=== PATIENT | female | born 1935 | race Caucasian/White ===

== ENCOUNTER 2016-12-11 10:54 | Emergency (ER) | payer MEDICARE, BC ==
[~2016-12-11] VITALS: Ht 160 cm; Wt 56.8 kg
[~2016-12-11 10:54] MED LIST: ADVIL100 MG/5 M PO; AMITIZA24 MCG PO; AMOXICILLI125 MG/51; AMOXICILLI400 MG/51 PO; AMOXICILLIN 8751 TAB PO; ANTIBIOTIC; ASPIRIN 81M81 MG/TA2 PEG; BENEFIBER1 POW PO; CEPHALEXIN250 MG/5 M PO; COLACE 100100 MG/CAP PO; COLACE LIQUI10 MG/ML PEG; COLACE LIQUI10 MG/ML PO; DIFLUCAN 100MG100 MG PO; DOXYCYCLINE 10100 MG PO; FENTANYL 50MCG TD; FLAGYL500 MG PEG; FLOXIN OTIC DROP5 ML; GENTAMICIN180 MG/502 NS; LEVAQUIN 750MG750 M1 PEG; MAGIC MOUTHWASH1 M2 PO; MERREM IV1 GM IV; MILK OF MA400 MG/52; OXYCODONE H5 MG/5 ML PEG; OXYCODONE H5 MG/5 ML PO; PERCOCET 325 MG1 TA2 PO; PERIDEX (CHLOR480 ML; PHENERGAN 25 TA25 MG PO; TYLENOL ELIX32 MG/ML PO; TYLENOL W/COD1 UDTAB PO; ZANTAC 150MG15 MG/M1 PEG
[2016-12-11 10:56] VITALS: BP 152/82; PULSE 70; TEMP 97.6
[2016-12-11] MEDS ORDERED: TYLENOL/CODEINE1 ML PO (11:01)
== END 2016-12-11 11:45 | disposition home or self-care (01) ==
LOC: COL.ER 10:54
DX: K94.23 Gastrostomy malfunction (principal)

== ENCOUNTER 2017-01-16 11:12 | Emergency (ER) | payer MEDICARE, BC ==
[~2017-01-16] VITALS: Ht 160 cm; Wt 56.8 kg
[~2017-01-16 11:12] MED LIST changes: +TYLENOL/CODEINE1 ML PO
[2017-01-16 11:15] VITALS: TEMP 98.3
[2017-01-16] MEDS ORDERED: BROVANA15 MCG/2 M IH (11:18)
[2017-01-16] MEDS ORDERED: ATROVENT I0.2 MG/1 M IH (11:18)
[2017-01-16 12:11] LABS: BASO % 0.2 % (0.0-2.0); EOS # 0.1 (0.0-0.7); EOS % 0.8 % (0-4.0); GRAN # 11.4 (1.4-6.5); GRAN % 85.6 % (42.2-75.2); HEMATOCRIT 41.1 % (37.0-47.0); HEMOGLOBIN 13.4 g/dl (12.5-16.0); LYMPH # 0.7 (1.2-3.4); LYMPH % 4.9 % (20.0-51.0); MEAN CELL VOLUME 96 fl (80.0-100.0); MEAN CORPUSCULAR HEMOGLOBIN 31 pg (27.0-31.0); MEAN CORPUSCULAR HGB CONC 33 g/dl (33.0-37.0); MEAN PLATELET VOLUME 11.8 fl (7.4-10.4); MONO # 1.1 (0.1-0.6); MONO % 8.2 % (1.7-9.3); PLATELET COUNT 167 K/mm3 (130-400); RED BLOOD COUNT 4.27 M/mm3 (4.10-5.30); REDCELL DISTRIBUTION WIDTH-CV 14.3 % (11.5-14.5); WHITE BLOOD COUNT 13.4 K/mm3 (4.8-10.8)
[2017-01-16 12:31] LABS: ADJUSTED CALCIUM 8.9 mg/dL (8.4-10.2); ALBUMIN 4.2 gm/dL (3.5-5.0); BILIRUBIN,TOTAL 1.4 mg/dL (0.0-1.0); CALCIUM 9.1 mg/dL (8.4-10.2); CREATININE, serum 0.65 mg/dL (0.52-1.25); POTASSIUM 4.4 mmol/L (3.4-5.0); TOTAL PROTEIN 7.4 gm/dL (6.4-8.2)
[2017-01-16] MEDS ORDERED: PEN-VEE K500 MG PO (13:47)
[2017-01-16 14:03] VITALS: BP 110/52; PULSE 95
== END 2017-01-16 14:04 | disposition home or self-care (01) ==
LOC: COL.ER 11:12
PROVIDERS: Physician Assistant
DX: K04.7 Periapical abscess without sinus (principal); Z79.891 Long term (current) use of opiate analgesic; Z85.830 Personal history of malignant neoplasm of bone
CPT/HCPCS: Q9967

== ENCOUNTER 2017-10-07 09:38 | Emergency (ER) | payer MEDICARE, BC ==
[~2017-10-07] VITALS: Ht 160 cm; Wt 56.8 kg
[~2017-10-07 09:38] MED LIST changes: +ATROVENT I0.2 MG/1 M IH; +BROVANA15 MCG/2 M IH; +PEN-VEE K500 MG PO
[2017-10-07 09:42] VITALS: BP 128/60; PULSE 77; TEMP 96.7
[2017-10-07] MEDS ORDERED: TIROSINT25 MC1 PO (09:49)
== END 2017-10-07 10:20 | disposition home or self-care (01) ==
LOC: COL.ER 09:38
DX: K94.29 Other complications of gastrostomy (principal); Z85.819 Personal history of malignant neoplasm of unspecified site of lip, oral cavity, and pharynx; Z87.891 Personal history of nicotine dependence

== ENCOUNTER → 2018-01-10 | Outpatient (CLI) | payer MEDICARE, BC ==
[~2018-01-10] MED LIST changes: +TIROSINT25 MC1 PO
== END ==
LOC: COL.VAS 09:58
DX: R42 Dizziness and giddiness (principal); Z92.3 Personal history of irradiation

== ENCOUNTER 2018-05-19 12:17 | Emergency (ER) | payer MEDICARE, BC ==
[~2018-05-19] VITALS: Ht 160 cm; Wt 56.8 kg
[2018-05-19 12:27] VITALS: BP 143/62
[2018-05-19] MEDS ORDERED: SSKI1 GM/ML PO (12:46)
[2018-05-19 13:18] VITALS: PULSE 62
== END 2018-05-19 13:19 | disposition home or self-care (01) ==
LOC: COL.ER 12:17
DX: K94.23 Gastrostomy malfunction (principal); Z43.1 Encounter for attention to gastrostomy

== ENCOUNTER 2018-12-06 18:17 | Emergency (ER) | payer MEDICARE, BC ==
[~2018-12-06] VITALS: Ht 160 cm; Wt 54.5 kg
[~2018-12-06 18:17] MED LIST changes: +SSKI1 GM/ML PO
[2018-12-06 18:18] VITALS: BP 187/95; TEMP 98.1
[2018-12-06 18:59] VITALS: PULSE 75
== END 2018-12-06 19:03 | disposition home or self-care (01) ==
LOC: COL.ER 18:17
DX: K94.23 Gastrostomy malfunction (principal)

== ENCOUNTER 2018-12-27 23:46 | Observation (INO) | payer MEDICARE, BC ==
[~2018-12-27] VITALS: Ht 160 cm; Wt 53.8 kg
[2018-12-28 00:17] LABS: BASO % 0.2 % (0.0-2.0); EOS % 0.1 % (0-4.0); GRAN # 9.7 (1.4-6.5); GRAN % 82.5 % (42.2-75.2); HEMATOCRIT 47.6 % (37.0-47.0); HEMOGLOBIN 15.7 g/dl (12.5-16.0); LYMPH # 1.2 (1.2-3.4); LYMPH % 9.9 % (20.0-51.0); MEAN CELL VOLUME 94 fl (80.0-100.0); MEAN CORPUSCULAR HEMOGLOBIN 31 pg (27.0-31.0); MEAN CORPUSCULAR HGB CONC 33 g/dl (33.0-37.0); MEAN PLATELET VOLUME 12.4 fl (7.4-10.4); MONO # 0.8 (0.1-0.6); MONO % 6.4 % (1.7-9.3); PLATELET COUNT 183 K/mm3 (130-400); RED BLOOD COUNT 5.08 M/mm3 (4.10-5.30)
[2018-12-28 00:22] LABS: ALANINE AMINOTRANSFERASE 27 U/L (9-52); ALBUMIN 4.7 gm/dL (3.5-5.0); ALKALINE PHOSPHATASE 84 U/L (50-136); ANION GAP 12 mmol/L (7-16); AST,SGOT 56 U/L (15-37); BILIRUBIN,TOTAL 0.9 mg/dL (0.0-1.0); BLOOD UREA NITROGEN 29 mg/dL (7-17); CALCIUM 9.9 mg/dL (8.4-10.2); CARBON DIOXIDE 30 mmol/L (22-30); CHLORIDE 99 mmol/L (98-107); CREATININE, serum 0.68 (0.52-1.25); GLUCOSE 109 mg/dL (74-106); LIPASE 128 U/L (23-300); POTASSIUM 4.3 mmol/L (3.4-5.0); SODIUM 140 mmol/L (137-145); TOTAL PROTEIN 8.4 gm/dL (6.4-8.2)
[2018-12-28 00:23] LABS: C-REACTIVE PROTEIN < 0.5 mg/dL (0.0-0.9); CREATINE KINASE < 20 U/L (30-135)
[2018-12-28 00:31] LABS: TROPONIN-I < 0.012 ng/mL (0.000-0.035)
--- NOTE | 2018-12-28 03:13 | NUR ---
RODDY Conrad from the ED calls at this time to give report. Patient will be brought up via bed. Daughter Romy at bedside
--- NOTE | 2018-12-28 03:26 | NUR ---
Patient arrives at this time with all belongings and daughter at bedside. Patient ambulates to unit bed. Requests to use the restroom, she uses independently. Oriented patient and family to room and unit. Assessment complete. Assessment reveals clear lung sounds with diminished bases, audible bowel sounds x4, and HR and rhythm regular with normal S1 and S2 heard. Patient has no complaints of pain at this time, says the medication she was given in the ED really helped. Patient is alert and oriented and able to answer all questions about her history. Med list updated. Patient does slur her words due to multiple oral surgeries and missing parts of her jaw. Admission assessments complete. Patient has no further needs at this time. Will continue to monitor. Call light within reach.
[2018-12-28] MEDS ORDERED: LEVOXYL0.075 MG PO (03:37)
[2018-12-28 03:39] VITALS: BP 131/70; PULSE 74; TEMP 97.9
--- NOTE | 2018-12-28 07:03 | NUR ---
Bedside report given to Bernadette
[2018-12-28 08:59] VITALS: BP 144/58; PULSE 68; TEMP 97.4
--- NOTE | 2018-12-28 09:12 | NUR ---
TOBI met with the patient and patient's daughter, Romy, to discuss discharge plan. The patient lives alone in [place]. Her daughter states she lives nearby. The patient reports independence with ADLs and does not use any DME. She states she does not have any home health services. The patient's PCP is Dr. Daisy Morelos and she receives her medications from [facility]. She reports no difficulties obtaining her meds. The patient does not have advanced directives in EMR, but she states that she does have them completed. The patient plans to return home upon discharge. No additional needs at this time.
[2018-12-28 11:36] VITALS: BP 139/56; PULSE 67; TEMP 97.8
--- NOTE | 2018-12-28 12:27 | NUR ---
First visit from the computer bookkeeper. No needs right now.
[2018-12-28] MEDS ORDERED: ARNUITY IH (14:20)
[2018-12-28 15:39] VITALS: BP 131/54; PULSE 67; TEMP 97.5
--- NOTE | 2018-12-28 18:00 | NUR ---
Patient has been diong well most of the day. She had pain once in her mouth and was rating her pain at 9 on a 0-10 scale. Morphine given for pain. Denies nausea. Will be getting her fentnyl patch changed this evening. She is hoping to discharge tomrrow. No other changes at this time. Call light within reach.
[2018-12-28 19:29] VITALS: BP 121/65; PULSE 65; TEMP 97.5
--- NOTE | 2018-12-28 19:30 | NUR ---
Per Dr. Lin, infuse tube feeding per what patient normally takes, at whatever rate patient usually does. Dietary to see patient in AM.
--- NOTE | 2018-12-28 20:22 | NUR ---
Resting in bed with daughter. Tubing feeding given per verbal orders from Dr. Lin. Assessment complete. Lungs clear. Heart sounds normal. Bowels active x4. Peg tube in place. Pulses strong throughout. No edema noted. Reports 2/10 pain in jaw. Duragesic patch applied. Wasted old patch per protocol, Bernadette Wolfe RN as witness. Patient denies other needs at this time. Call light in reach. Will monitor.
--- NOTE | 2018-12-28 20:32 | NUR ---
Infused isosource 1.5, 375ml with 360ml of free water per verbal order from Dr. Lin. Order to infuse what patient noramlly infuses at home at whatever rate patient does. Patient tolerated well. Will monitor.
[2018-12-28 23:43] VITALS: BP 97/68; PULSE 68; TEMP 97.2
--- NOTE | 2018-12-29 00:37 | NUR ---
Resting in bed. Denies needs. Call light in reach.
[2018-12-29 00:40] VITALS: BP 117/60
[2018-12-29 03:36] VITALS: BP 128/64; PULSE 64; TEMP 97.8
[2018-12-29 06:26] LABS: HEMATOCRIT 41.4 % (37.0-47.0); MEAN CELL VOLUME 94 fl (80.0-100.0); MEAN CORPUSCULAR HEMOGLOBIN 31 pg (27.0-31.0); MEAN CORPUSCULAR HGB CONC 33 g/dl (33.0-37.0); MEAN PLATELET VOLUME 11.9 fl (7.4-10.4); PLATELET COUNT 190 K/mm3 (130-400); RED BLOOD COUNT 4.39 M/mm3 (4.10-5.30); REDCELL DISTRIBUTION WIDTH-CV 14.3 % (11.5-14.5)
[2018-12-29 06:29] LABS: HEMOGLOBIN 13.5 g/dl (12.5-16.0)
--- NOTE | 2018-12-29 06:32 | NUR ---
Patient had uneventful night. Tolerated x1 tube feeding. Will pass on to next shift to INT IVF per additional nurse if tolerating tube feedings. Resting in bed this AM. Call light in reach.
[2018-12-29 06:39] LABS: ALBUMIN 3.6 gm/dL (3.5-5.0); BILIRUBIN,TOTAL 0.7 mg/dL (0.0-1.0); CREATININE, serum 0.56 (0.52-1.25); POTASSIUM 4.7 mmol/L (3.4-5.0); TOTAL PROTEIN 6.6 gm/dL (6.4-8.2)
--- NOTE | 2018-12-29 07:22 | NUR ---
Report given to RODDY Fleming
[2018-12-29 08:00] VITALS: BP 114/36; PULSE 73; TEMP 98
--- NOTE | 2018-12-29 11:30 | NUR ---
Patient is discharging home. Discharge instructions discussed with patient. No questions verbalized. INT discontinued. Follow up appointment scheduled, explained when it is. All belongings packed up and sent with patient. Copies of discharge instructions sent with patient.
== END 2018-12-29 11:30 | disposition home or self-care (01) ==
LOC: COL.ER 23:46 → SURG 12-28 02:55
PROVIDERS: Emergency Medicine; ADMIT Surgery
DX: R10.13 Epigastric pain (principal); Z85.810 Personal history of malignant neoplasm of tongue; Z93.1 Gastrostomy status; E03.9 Hypothyroidism, unspecified; J44.9 Chronic obstructive pulmonary disease, unspecified; Z88.1 Allergy status to other antibiotic agents; Z88.2 Allergy status to sulfonamides; Z88.8 Allergy status to other drugs, medicaments and biological substances
CPT/HCPCS: A4216; G0378; J0696; J2270; J3010; J7030; Q9967

== ENCOUNTER 2019-02-02 16:21 | Emergency (ER) | payer MEDICARE, BC ==
[~2019-02-02] VITALS: Ht 157.5 cm; Wt 55.0 kg
[~2019-02-02 16:21] MED LIST changes: +ARNUITY IH; +LEVOXYL0.075 MG PO
[2019-02-02 16:32] VITALS: TEMP 98.2
[2019-02-02] MEDS ORDERED: COLACE 100100 MG/CAP PO (18:12)
[2019-02-02] MEDS ORDERED: DULCOLAX S10 MG/SUPP RC (18:46)
[2019-02-02 18:53] VITALS: BP 164/81; PULSE 83
== END 2019-02-02 18:55 | disposition home or self-care (01) ==
LOC: COL.ER 16:21
DX: K56.41 Fecal impaction (principal); K62.89 Other specified diseases of anus and rectum

== ENCOUNTER 2019-06-27 18:16 | Emergency (ER) | payer MEDICARE, BC ==
[~2019-06-27] VITALS: Ht 177.8 cm; Wt 56.8 kg
[~2019-06-27 18:16] MED LIST changes: +DULCOLAX S10 MG/SUPP RC
[2019-06-27 18:20] VITALS: BP 153/75; TEMP 97.3
[2019-06-27 18:51] LABS: BASO % 0.4 % (0.0-2.0); EOS # 0.2 (0.0-0.7); GRAN # 5.2 (1.4-6.5); GRAN % 68.6 % (42.2-75.2); HEMATOCRIT 43.3 % (37.0-47.0); HEMOGLOBIN 14.1 g/dl (12.5-16.0); LYMPH # 1.4 (1.2-3.4); LYMPH % 18.5 % (20.0-51.0); MEAN CELL VOLUME 95 fl (80.0-100.0); MEAN CORPUSCULAR HEMOGLOBIN 31 pg (27.0-31.0); MEAN CORPUSCULAR HGB CONC 33 g/dl (33.0-37.0); MEAN PLATELET VOLUME 11.9 fl (7.4-10.4); MONO # 0.7 (0.1-0.6); MONO % 9.2 % (1.7-9.3); PLATELET COUNT 186 K/mm3 (130-400); RED BLOOD COUNT 4.56 M/mm3 (4.10-5.30); REDCELL DISTRIBUTION WIDTH-CV 14.1 % (11.5-14.5)
[2019-06-27 19:04] LABS: ALBUMIN 4.5 gm/dL (3.5-5.0); BILIRUBIN,TOTAL 0.5 mg/dL (0.0-1.0); C-REACTIVE PROTEIN 0.9 mg/dL (0.0-0.9); CALCIUM 9.5 mg/dL (8.4-10.2); CREATININE, serum 0.71 (0.52-1.25); POTASSIUM 4.3 mmol/L (3.4-5.0); TOTAL PROTEIN 7.9 gm/dL (6.4-8.2)
[2019-06-27 20:16] VITALS: PULSE 64
== END 2019-06-27 20:16 | disposition home or self-care (01) ==
LOC: COL.ER 18:16
PROVIDERS: Family Medicine
DX: K94.23 Gastrostomy malfunction (principal); Z85.818 Personal history of malignant neoplasm of other sites of lip, oral cavity, and pharynx
CPT/HCPCS: Q9967

== ENCOUNTER 2019-12-13 12:15 | Emergency (ER) | payer MEDICARE, BC ==
[~2019-12-13] VITALS: Ht 177.8 cm; Wt 54.5 kg
[2019-12-13 12:18] VITALS: BP 179/75; TEMP 99.1
[2019-12-13 13:18] LABS: BASO % 0.2 % (0.0-2.0); EOS # 0.2 (0.0-0.7); GRAN # 6.9 (1.4-6.5); GRAN % 79.8 % (42.2-75.2); HEMATOCRIT 39.6 % (37.0-47.0); HEMOGLOBIN 12.9 g/dl (12.5-16.0); LYMPH # 0.9 (1.2-3.4); MEAN CELL VOLUME 95 fl (80.0-100.0); MEAN CORPUSCULAR HEMOGLOBIN 31 pg (27.0-31.0); MEAN CORPUSCULAR HGB CONC 33 g/dl (33.0-37.0); MEAN PLATELET VOLUME 11.8 fl (7.4-10.4); MONO # 0.7 (0.1-0.6); MONO % 7.8 % (1.7-9.3); PLATELET COUNT 214 K/mm3 (130-400); RED BLOOD COUNT 4.16 M/mm3 (4.10-5.30); REDCELL DISTRIBUTION WIDTH-CV 14.1 % (11.5-14.5)
[2019-12-13 13:26] LABS: ALBUMIN 3.9 gm/dL (3.5-5.0); BILIRUBIN,TOTAL 0.6 mg/dL (0.0-1.0); CALCIUM 9.2 mg/dL (8.4-10.2); CREATININE, serum 0.68 (0.52-1.25); POTASSIUM 4.7 mmol/L (3.4-5.0); TOTAL PROTEIN 7.2 gm/dL (6.4-8.2)
[2019-12-13] MEDS ORDERED: CEPHALEXIN250 MG/5 M PEG (15:27)
[2019-12-13 15:40] VITALS: PULSE 72
== END 2019-12-13 15:59 | disposition home or self-care (01) ==
LOC: COL.ER 12:15
PROVIDERS: Emergency Medicine
DX: K94.22 Gastrostomy infection (principal)
CPT/HCPCS: Q9967

== ENCOUNTER 2019-12-21 17:27 | Emergency (ER) | payer MEDICARE, BC ==
[~2019-12-21] VITALS: Ht 157.5 cm; Wt 56.8 kg
[~2019-12-21 17:27] MED LIST changes: +CEPHALEXIN250 MG/5 M PEG
[2019-12-21 17:35] VITALS: TEMP 97.6
[2019-12-21 18:14] VITALS: BP 139/68; PULSE 70
== END 2019-12-21 18:14 | disposition home or self-care (01) ==
LOC: COL.ER 17:27
DX: K94.21 Gastrostomy hemorrhage (principal); E03.9 Hypothyroidism, unspecified

== ENCOUNTER 2020-08-20 16:57 | Emergency (ER) | payer MEDICARE, BC ==
[~2020-08-20] VITALS: Ht 157.5 cm; Wt 57.7 kg
[2020-08-20 17:09] VITALS: BP 154/79; TEMP 97.8
[2020-08-20] MEDS ORDERED: LEVAQUIN 5500 MG/TA1 PO (17:32)
[2020-08-20] MEDS ORDERED: TYLENOL W/COD1 UDTAB PO (17:33)
[2020-08-20] MEDS ORDERED: BENADRYL25 M2 PO (17:33)
[2020-08-20 18:12] VITALS: PULSE 72
== END 2020-08-20 18:08 | disposition home or self-care (01) ==
LOC: COL.ER 16:57
DX: K94.23 Gastrostomy malfunction (principal); Z88.8 Allergy status to other drugs, medicaments and biological substances; Z88.2 Allergy status to sulfonamides; Z87.891 Personal history of nicotine dependence

== ENCOUNTER 2020-11-07 07:43 | Emergency (ER) | payer MEDICARE, BC ==
[~2020-11-07] VITALS: Ht 160 cm; Wt 57.7 kg
[~2020-11-07 07:43] MED LIST changes: +BENADRYL25 M2 PO; +LEVAQUIN 5500 MG/TA1 PO
[2020-11-07 07:56] VITALS: TEMP 97.3
[2020-11-07] MEDS ORDERED: FENTANYL 25 MCG TD (08:20)
[2020-11-07] MEDS ORDERED: ATROVENT I0.2 MG/1 M IH (08:21)
[2020-11-07 08:26] VITALS: BP 126/89; PULSE 81
[2021-03-17] MEDS ORDERED: TYLENOL/CODEINE1 ML PO (05:23)
[2021-03-17] MEDS ORDERED: AUGMENTIN 400100 ML PO (05:25)
== END 2020-11-07 08:30 | disposition home or self-care (01) ==
LOC: COL.ER 07:43
DX: K94.29 Other complications of gastrostomy (principal); E03.9 Hypothyroidism, unspecified; Z88.2 Allergy status to sulfonamides; Z79.890 Hormone replacement therapy; Z88.8 Allergy status to other drugs, medicaments and biological substances

== ENCOUNTER 2020-11-08 06:12 | Emergency (ER) | payer MEDICARE, BC ==
[~2020-11-08] VITALS: Ht 167.6 cm; Wt 65.9 kg
[~2020-11-08 06:12] MED LIST changes: +FENTANYL 25 MCG TD
[2020-11-08 06:17] VITALS: BP 150/81; PULSE 89; TEMP 97.4
[2021-03-17] MEDS ORDERED: TYLENOL/CODEINE1 ML PO (05:23)
[2021-03-17] MEDS ORDERED: AUGMENTIN 400100 ML PO (05:25)
== END 2020-11-08 06:50 | disposition home or self-care (01) ==
LOC: COL.ER 06:12
DX: K94.23 Gastrostomy malfunction (principal); E03.9 Hypothyroidism, unspecified; Z88.8 Allergy status to other drugs, medicaments and biological substances; Z88.2 Allergy status to sulfonamides; Z79.890 Hormone replacement therapy

== ENCOUNTER 2021-01-29 11:09 | Emergency (ER) | payer MEDICARE, BC ==
[~2021-01-29] VITALS: Ht 157.5 cm; Wt 57.7 kg
[2021-01-29 11:27] VITALS: BP 142/63; TEMP 97.5
[2021-01-29 12:12] VITALS: PULSE 74
[2021-03-17] MEDS ORDERED: TYLENOL/CODEINE1 ML PO (05:23)
[2021-03-17] MEDS ORDERED: AUGMENTIN 400100 ML PO (05:25)
== END 2021-01-29 12:13 | disposition home or self-care (01) ==
LOC: COL.ER 11:09
DX: K94.23 Gastrostomy malfunction (principal)
CPT/HCPCS: 31007

== ENCOUNTER 2021-02-04 18:35 | Emergency (ER) | payer MEDICARE, BC ==
[~2021-02-04] VITALS: Ht 157.5 cm; Wt 57.7 kg
[2021-02-04 19:41] LABS: BASO % 0.3 % (0.0-2.0); EOS # 0.2 (0.0-0.7); EOS % 2.7 % (0-4.0); GRAN % 71.3 % (42.2-75.2); HEMATOCRIT 38.1 % (37.0-47.0); HEMOGLOBIN 12.2 g/dl (12.5-16.0); LYMPH # 1.2 (1.2-3.4); LYMPH % 16.5 % (20.0-51.0); MEAN CELL VOLUME 93 fl (80.0-100.0); MEAN CORPUSCULAR HEMOGLOBIN 30 pg (27.0-31.0); MEAN CORPUSCULAR HGB CONC 32 g/dl (33.0-37.0); MEAN PLATELET VOLUME 11.5 fl (7.4-10.4); MONO # 0.6 (0.1-0.6); MONO % 8.9 % (1.7-9.3); PLATELET COUNT 195 K/mm3 (130-400); REDCELL DISTRIBUTION WIDTH-CV 13.9 % (11.5-14.5)
[2021-02-04 19:53] LABS: ALBUMIN 3.9 gm/dL (3.5-5.0); BILIRUBIN,TOTAL 0.6 mg/dL (0.0-1.0); CALCIUM 9.2 mg/dL (8.4-10.2); CREATININE, serum 0.67 (0.52-1.25); POTASSIUM 4.3 mmol/L (3.4-5.0); TOTAL PROTEIN 7.2 gm/dL (6.4-8.2)
[2021-02-04 21:50] VITALS: BP 142/80; PULSE 64; TEMP 97.4
[2021-03-17] MEDS ORDERED: TYLENOL/CODEINE1 ML PO (05:23)
[2021-03-17] MEDS ORDERED: AUGMENTIN 400100 ML PO (05:25)
== END 2021-02-04 22:28 | disposition home or self-care (01) ==
LOC: COL.ER 18:35
PROVIDERS: Personal Emergency Response Attendant
DX: R68.84 Jaw pain (principal); Z87.891 Personal history of nicotine dependence; Z85.818 Personal history of malignant neoplasm of other sites of lip, oral cavity, and pharynx
CPT/HCPCS: J2270; J7030

== ENCOUNTER 2021-03-17 13:47 | Day surgery (SDC) | payer MEDICARE, BC ==
[2021-03-17] VITALS (8 sets, daily range): BP systolic 86–138; BP diastolic 47–88; PULSE 70–77; TEMP 97.6–98.2
[~2021-03-17] VITALS: Ht 160 cm; Wt 56.3 kg
[~2021-03-17 13:47] MED LIST changes: +AUGMENTIN 400100 ML PO
--- NOTE | 2021-03-17 14:20 | NUR ---
1410 PATIENT AMBULATED INTO AMBULATORY UNIT ACCOMPANIED BY DAUGHTER WITH STEADY GAIT. ASSESSMENT COMPLETED. LUNGS CTA. HEART SOUNDS S1,S2, AND REGULAR. BOWEL SOUNDS HEARD. PULSES +2 TO LEFT HAND AND PEDAL PULSES. PATIENT HAS RESTRICTED EXTREMETY TO RIGHT ARM. PATIENT IS ALERT AND ORIENTED X 3. PATIENT HAS FEEDING TUBE IN PLACE TO LEFT SIDE. IV START TO LEFT WRIST X 1 STICK WITH 20 GAUGE.
--- NOTE | 2021-03-17 16:49 | NUR ---
PATIENT TRANSPORTED PER CART FROM OR TO AMB UNIT PER CART. MONITORS APPLIED. VSS ON ROOM AIR. PATIENT TALKS WITH STAFF. DRAINAGE NOTED TO DRESSING TO LEFT CHEEK. PATIENT STATES CHEEK IS SORE BUT UNABLE TO RATE DISCOMFORT. WARM BLANKETS APPLIED. VERBAL REPORT RECEIVED.
--- NOTE | 2021-03-17 17:02 | NUR ---
VSS ON ROOM AIR. DAUGHTER IN ROOM AND TALKS WITH PATIENT. DR LARIOS IN ROOM AND SPEAKS WITH PATIENT AND DAUGHTER.
--- NOTE | 2021-03-17 18:52 | NUR ---
1715 Transfer of care to this RN from RODDY Pompa. Report received from Aletha. Pt rating pain in cheek at 8 out of 10. Pharmacy called for medication for feeding tube administration. Drainage continues on bandage. Dr. Vaughn said to expect this and advised changing the bandage as necessary. 1730 Bandage changed. Serous-sanguineous drainage noted across absorbant pad on bandage. Bandage changed. 1803 Pt ambulates to restroom with this RN assist. Prior to this, pt now rating pain at a 6 out of 10 and continuing to decrease. 1806 Pt ambultes from restroom to [place] [id number] with RN assist. 1815 Pt rating pain now at 5 out of 10 and continuing to decrease. Pt is ready to be discharged home. 1845 Discharge instructions given to pt and daughter. All questions answered to their satisfaction. Handed to them are a thank you card, discharge information, and an additional bandage. Replacement bandage discussed with them and when to call Dr. Vaughn's office. 1852 Pt transferred out of hospital via wheelchair and this RN to private vehicle driven by daughter.
== END 2021-03-17 18:52 | disposition home or self-care (01) ==
LOC: SDCO 13:47
DX: L02.01 Cutaneous abscess of face (principal); M27.2 Inflammatory conditions of jaws; M27.40 Unspecified cyst of jaw; E89.0 Postprocedural hypothyroidism; J44.9 Chronic obstructive pulmonary disease, unspecified; J31.0 Chronic rhinitis; Z20.822 Contact with and (suspected) exposure to COVID-19; Z87.891 Personal history of nicotine dependence; Z79.899 Other long term (current) drug therapy; Z92.3 Personal history of irradiation; Z92.21 Personal history of antineoplastic chemotherapy; Z79.890 Hormone replacement therapy; Z98.890 Other specified postprocedural states; Z85.818 Personal history of malignant neoplasm of other sites of lip, oral cavity, and pharynx; Z93.1 Gastrostomy status; Z98.818 Other dental procedure status
CPT/HCPCS: J0696; J2270; J2405; J2704; J3010; J7030; Q9967

== ENCOUNTER 2021-04-26 11:11 | Emergency (ER) | payer MEDICARE, BC ==
[~2021-04-26] VITALS: Ht 157.5 cm; Wt 56.8 kg
[2021-04-26 16:56] VITALS: BP 103/62; PULSE 73; TEMP 97.4
== END 2021-04-26 15:00 | disposition home or self-care (01) ==
LOC: COL.ER 11:11
DX: K59.00 Constipation, unspecified (principal)

== ENCOUNTER 2021-05-28 15:53 | Outpatient (CLI) | payer MEDICARE, BC ==
[~2021-05-28] VITALS: Ht 160 cm; Wt 56.4 kg
[2021-05-28 16:44] VITALS: BP 130/64; PULSE 71; TEMP 95.9
--- NOTE | 2021-05-28 18:00 | NUR ---
Pt stayed for one hour post Prolia shot. No reaction reorted or noted.
== END 2021-05-28 18:00 | disposition home or self-care (01) ==
LOC: EUO 15:53
DX: M81.0 Age-related osteoporosis without current pathological fracture (principal)
CPT/HCPCS: J0897

== ENCOUNTER 2021-07-07 15:53 | Emergency (ER) | payer MEDICARE, BC ==
[~2021-07-07] VITALS: Ht 157.5 cm; Wt 55.9 kg
[2021-07-07 16:02] VITALS: TEMP 98.6
[2021-07-07 16:30] LABS: BASO % 0.2 % (0.0-2.0); EOS # 0.2 K/mm3 (0.0-0.7); EOS % 1.8 % (0-4.0); GRAN # 6.8 K/mm3 (1.4-6.5); GRAN % 81.1 % (42.2-75.2); HEMATOCRIT 39.9 % (37.0-47.0); HEMOGLOBIN 13.2 g/dl (12.5-16.0); LYMPH # 0.6 K/mm3 (1.2-3.4); LYMPH % 7.1 % (20.0-51.0); MEAN CELL VOLUME 86 fl (80.0-100.0); MEAN CORPUSCULAR HEMOGLOBIN 29 pg (27.0-31.0); MEAN CORPUSCULAR HGB CONC 33 g/dl (33.0-37.0); MEAN PLATELET VOLUME 10.8 fl (7.4-10.4); MONO # 0.8 K/mm3 (0.1-0.6); MONO % 9.3 % (1.7-9.3); PLATELET COUNT 235 K/mm3 (130-400); RED BLOOD COUNT 4.63 M/mm3 (4.10-5.30); REDCELL DISTRIBUTION WIDTH-CV 15.2 % (11.5-14.5)
[2021-07-07 16:44] LABS: ALBUMIN 3.5 gm/dL (3.4-4.8); BILIRUBIN,TOTAL 1.2 mg/dL (0.2-1.2); CALCIUM 9.2 mg/dL (8.4-10.2); CREATININE, serum 0.78 mg/dL (0.57-1.11); POTASSIUM 4.6 mmol/L (3.5-4.5); TOTAL PROTEIN 7.7 gm/dL (6.2-8.1)
[2021-07-07] MEDS ORDERED: ZITHROMAX Z PA250 MG PO (19:43)
[2021-07-07 20:01] VITALS: BP 114/80; PULSE 76
== END 2021-07-07 20:01 | disposition home or self-care (01) ==
LOC: COL.ER 15:53
PROVIDERS: Family Medicine
DX: J12.9 Viral pneumonia, unspecified (principal); K59.00 Constipation, unspecified; J43.9 Emphysema, unspecified; Z20.822 Contact with and (suspected) exposure to COVID-19; Z87.891 Personal history of nicotine dependence
CPT/HCPCS: J0696; J1100; J1200; J7030; Q9967

== ENCOUNTER 2021-07-11 11:27 | Inpatient (IN) | payer MEDICARE, BC ==
[~2021-07-11] VITALS: Ht 180.3 cm; Wt 54.2 kg
[~2021-07-11 11:27] MED LIST changes: +ZITHROMAX Z PA250 MG PO
[2021-07-11 14:46] LABS: HEMATOCRIT 38.2 % (37.0-47.0); MEAN CELL VOLUME 89 fl (80.0-100.0); MEAN CORPUSCULAR HGB CONC 32 g/dl (33.0-37.0); MEAN PLATELET VOLUME 11.6 fl (7.4-10.4); RED BLOOD COUNT 4.29 M/mm3 (4.10-5.30); REDCELL DISTRIBUTION WIDTH-CV 15.1 % (11.5-14.5)
[2021-07-11 15:35] LABS: HEMOGLOBIN 12.3 g/dl (12.5-16.0); MEAN CORPUSCULAR HEMOGLOBIN 29 pg (27.0-31.0); PLATELET COUNT 225 K/mm3 (130-400)
[2021-07-11] MEDS ORDERED: PULMICORT0.5 MG/2 M IH (15:36)
[2021-07-11 15:52] LABS: ALANINE AMINOTRANSFERASE 16 U/L (0-55); ALBUMIN 3.2 gm/dL (3.4-4.8); ALKALINE PHOSPHATASE 78 U/L (40-150); ANION GAP 11 mmol/L (7-16); AST,SGOT 33 U/L (5-34); BILIRUBIN,TOTAL 0.8 mg/dL (0.2-1.2); BLOOD UREA NITROGEN 16 mg/dL (10-20); CALCIUM 9.4 mg/dL (8.4-10.2); CARBON DIOXIDE 26 mmol/L (23-31); CHLORIDE 101 mmol/L (98-107); CREATININE, serum 0.77 mg/dL (0.57-1.11); GLUCOSE 95 mg/dL (70-99); SODIUM 138 mmol/L (136-145); TOTAL PROTEIN 7.3 gm/dL (6.2-8.1)
[2021-07-11 16:00] LABS: TROPONIN-I < 0.010 ng/mL (0.00-0.033)
--- NOTE | 2021-07-11 17:57 | NUR ---
Patient to room 358 from the ED by wheelchair. A&Ox3, impaired speech, but nurse is able to understand the patient. IV CDI, fluids infusing. Nurse oriented the patient to location, room and call light. Reports usual pain in jaw. Denies SOB. 3L NC O2. Peg tube, old drainage, patient independent with feeds and care. No further needs expressed. Call light within reach
[2021-07-11 18:17] VITALS: BP 142/69; PULSE 79; TEMP 98.1
--- NOTE | 2021-07-11 18:41 | NUR ---
Daughter in the room assisting with patient tube feed. Suction at the bedside if needed PRN. Denies pain and discomfort. IV CDI, fluids infusing. A&Ox4. VSS 3L NC O2, no report SOB. Call light within reach. No further needs expressed.
[2021-07-11 19:45] VITALS: BP 117/51; PULSE 83; TEMP 98.4
--- NOTE | 2021-07-11 20:30 | NUR ---
PATIENT IS CALM IN BED.PATIENT DENIES PAIN.PATIENT IS GIVEN MEDS THROUGH THE PEG TUBE.PATIENT DENIES PAIN.SAFETY MEASURES IN PLACE.NO OTHER NEEDS AT THIS TIME.
[2021-07-11 23:58] VITALS: BP 115/54; PULSE 75; TEMP 98.2
[2021-07-12 04:16] VITALS: BP 109/53; PULSE 78; TEMP 98.3
--- NOTE | 2021-07-12 04:26 | NUR ---
PATIENT HAD A CALM NIGHT.PATIENT DENIES PAIN.PATIENT IS GIVEN MEDICATION THROUGH THE PEG TUBE.SAFETY MEASURES IN PLACE.NO OTHER NEEDS AT THIS TIME.
[2021-07-12 07:26] VITALS: BP 96/49; PULSE 77; TEMP 98
[2021-07-12 07:44] LABS: HEMATOCRIT 37.6 % (37.0-47.0); HEMOGLOBIN 11.9 g/dl (12.5-16.0); MEAN CELL VOLUME 89 fl (80.0-100.0); MEAN CORPUSCULAR HEMOGLOBIN 28 pg (27.0-31.0); MEAN CORPUSCULAR HGB CONC 32 g/dl (33.0-37.0); MEAN PLATELET VOLUME 12.4 fl (7.4-10.4); PLATELET COUNT 194 K/mm3 (130-400); RED BLOOD COUNT 4.24 M/mm3 (4.10-5.30); REDCELL DISTRIBUTION WIDTH-CV 14.9 % (11.5-14.5)
[2021-07-12 07:55] LABS: CALCIUM 9.3 mg/dL (8.4-10.2); CREATININE, serum 0.72 mg/dL (0.57-1.11); POTASSIUM 4.5 mmol/L (3.5-4.5)
--- NOTE | 2021-07-12 08:00 | NUR ---
Patient resting in bed, easily awakened with verbal command. A&Ox4. VSS 2L NC O2. Denies pain and discomfort. Suction at the bedside. Peg tube intact. No further needs expressed. Patient states that she is just tired and wants to rest. Call light within reach
--- NOTE | 2021-07-12 13:06 | NUR ---
stopped by but nothing needed at this time.
[2021-07-12 13:38] VITALS: BP 134/55; PULSE 84; TEMP 98.3
--- NOTE | 2021-07-12 13:42 | NUR ---
Patient called nursing staff to let the nurse know that the patient pulled out their peg tube. Daughter at the bedside. Patient A&Ox4. Upset, but stable. Dr. Fu notified. Call light within reach
--- NOTE | 2021-07-12 17:27 | NUR ---
PT IS UNABLE TO USE INSENTIVE SPIROMETER DUE TO HER EXTENSIVE ORAL SURGERIES.
--- NOTE | 2021-07-12 18:34 | NUR ---
Patient took a shower and feels better. Peg tube intact. A&Ox4. VSS 2L NC O2. No reported SOB. IV CDI. Reports usual pain in the jaw, pain medication given when requested. Patient independent with feeds and cares. Steady on feet. Reported being more tired today and slept throughout the shift. No further needs expressed. Call light within reach
[2021-07-12 19:59] VITALS: BP 99/78; PULSE 75; TEMP 97.3
--- NOTE | 2021-07-12 21:40 | NUR ---
PATIENT IS RSTING IN BED.PATIENT DENIES PAIN.PATIENT OLD FENTANYL PATCHES WERE REMOVED FROM THE LT SHOULDER.FENTANYL PATCH PLACED ON THE RT SHOULDER.MEDICATIONS GIVEN THROUGH THE PEG TUBE.SAFETY MEASURES IN PLACE.NO OTHER NEEDS AT THIS TIME.
[2021-07-13 00:53] VITALS: BP 107/49; PULSE 77; TEMP 98.8
[2021-07-13 03:41] VITALS: BP 99/47; PULSE 74; TEMP 98.7
--- NOTE | 2021-07-13 06:22 | NUR ---
PATIENT HAD A CALM NIGHT.PATIENT DENIES SOB AND PAIN.PATINET IS NPO.SAFETY MEASURES IN PLACE.NO OTHER NEEDS AT THIS TIME.
[2021-07-13 07:59] VITALS: BP 122/87; PULSE 95; TEMP 97.7
--- NOTE | 2021-07-13 08:00 | NUR ---
Patient sitting up in the recliner watching TV in the dark. A&Ox4. VSS 2L NC O2. No reported SOB, pain or discomfort. IV CDI. Patient independent in the room and with feeds. No further needs expressed. Call light within reach
--- NOTE | 2021-07-13 12:09 | NUR ---
Discharge paperwork reviewed with the patient and daughter at the bedside. Patient verbalized an understanding to follow doctors orders. IV removed, tip intact. Personal belongings and discharge paperwork with the patient. No further needs expressed. Patient taken by wheelchair to ED entrance and vehicle.
== END 2021-07-13 12:20 | disposition home or self-care (01) | DRG 193 ==
LOC: COL.ER 11:27 → MEDICAL 16:11
PROVIDERS: Emergency Medicine; Physician Assistant; ADMIT Internal Medicine
DX: J12.9 Viral pneumonia, unspecified (principal); J96.01 Acute respiratory failure with hypoxia; E43 Unspecified severe protein-calorie malnutrition; Z85.819 Personal history of malignant neoplasm of unspecified site of lip, oral cavity, and pharynx; Z98.41 Cataract extraction status, right eye; K59.00 Constipation, unspecified; E03.9 Hypothyroidism, unspecified; Z87.891 Personal history of nicotine dependence; E87.5 Hyperkalemia; Z93.1 Gastrostomy status; Z68.21 Body mass index [BMI] 21.0-21.9, adult
CPT/HCPCS: 99222-AI; 99223-AI; 99232-AI; 99239; J1650; J7030

== ENCOUNTER 2021-10-20 10:11 | Emergency (ER) | payer MEDICARE, BC ==
[~2021-10-20] VITALS: Ht 157.5 cm; Wt 55.5 kg
[~2021-10-20 10:11] MED LIST changes: +PULMICORT0.5 MG/2 M IH
[2021-10-20 10:23] VITALS: TEMP 96.5
[2021-10-20 11:06] LABS: BASO % 0.2 % (0.0-2.0); EOS # 0.2 K/mm3 (0.0-0.7); EOS % 1.7 % (0.0-4.0); GRAN # 7.6 K/mm3 (1.4-6.5); GRAN % 81.7 % (42.2-75.2); HEMATOCRIT 39.9 % (37.0-47.0); HEMOGLOBIN 13.1 g/dl (12.5-16.0); LYMPH # 0.7 K/mm3 (1.2-3.4); LYMPH % 7.6 % (20.0-51.0); MEAN CELL VOLUME 93 fl (80.0-100.0); MEAN CORPUSCULAR HEMOGLOBIN 30 pg (27-31); MEAN CORPUSCULAR HGB CONC 33 g/dl (33.0-37.0); MEAN PLATELET VOLUME 12.4 fl (7.4-10.4); MONO # 0.8 K/mm3 (0.1-0.6); MONO % 8.5 % (1.7-9.3); PLATELET COUNT 153 K/mm3 (130-400); RED BLOOD COUNT 4.31 M/mm3 (4.10-5.30); REDCELL DISTRIBUTION WIDTH-CV 15.4 % (11.5-14.5)
[2021-10-20 11:22] LABS: ALBUMIN 3.9 gm/dL (3.4-4.8); BILIRUBIN,TOTAL 0.9 mg/dL (0.2-1.2); CALCIUM 9.2 mg/dL (8.4-10.2); CREATININE, serum 0.78 mg/dL (0.57-1.11); POTASSIUM 4.4 mmol/L (3.5-4.5)
[2021-10-20 11:57] VITALS: BP 125/46; PULSE 66
== END 2021-10-20 11:57 | disposition home or self-care (01) ==
LOC: COL.ER 10:11
PROVIDERS: Physician Assistant
DX: K02.9 Dental caries, unspecified (principal); Z85.818 Personal history of malignant neoplasm of other sites of lip, oral cavity, and pharynx; Z98.818 Other dental procedure status; Z87.891 Personal history of nicotine dependence

== ENCOUNTER → 2021-10-28 | Outpatient (CLI) | payer MEDICARE, BC | LOC: COL.RAD 13:35 | DX: R68.84 Jaw pain (principal); R22.0 Localized swelling, mass and lump, head ==

== ENCOUNTER 2021-11-18 21:28 | Emergency (ER) | payer MEDICARE, BC ==
[~2021-11-18] VITALS: Ht 157.5 cm; Wt 55.5 kg
[2021-11-18 21:32] VITALS: TEMP 98
[2021-11-18] MEDS ORDERED: ZITHROMAX Z PA250 MG PO ×2 (22:33)
[2021-11-18] MEDS ORDERED: AUGMENTIN XR 101 TER PO ×2 (22:33)
[2021-11-18] MEDS ORDERED: AUGMENTIN ES-6125 ML PEG (22:39)
[2021-11-18 22:46] VITALS: BP 154/80; PULSE 86
== END 2021-11-18 22:46 | disposition home or self-care (01) ==
LOC: COL.ER 21:28
DX: J18.9 Pneumonia, unspecified organism (principal); Z20.822 Contact with and (suspected) exposure to COVID-19

== ENCOUNTER 2021-11-28 13:33 | Emergency (ER) | payer MEDICARE, BC ==
[~2021-11-28] VITALS: Ht 157.5 cm; Wt 54.5 kg
[~2021-11-28 13:33] MED LIST changes: +AUGMENTIN ES-6125 ML PEG; +AUGMENTIN XR 101 TER PO
[2021-11-28 13:46] VITALS: TEMP 96.6
[2021-11-28] MEDS ORDERED: PREDNISONE20 MG PO (15:10)
[2021-11-28] MEDS ORDERED: MUCINEX 60600 MG/TA1 PO (15:10)
[2021-11-28 15:28] VITALS: BP 137/80; PULSE 61
== END 2021-11-28 15:28 | disposition home or self-care (01) ==
LOC: COL.ER 13:33
DX: J44.9 Chronic obstructive pulmonary disease, unspecified (principal); Z99.81 Dependence on supplemental oxygen; Z87.891 Personal history of nicotine dependence

== ENCOUNTER 2021-12-03 13:28 | Outpatient (CLI) | payer MEDICARE, BC ==
[~2021-12-03] VITALS: Ht 157.5 cm; Wt 52.3 kg
[~2021-12-03 13:28] MED LIST changes: +MUCINEX 60600 MG/TA1 PO; +PREDNISONE20 MG PO
[2021-12-03 14:09] VITALS: BP 132/65; PULSE 71; TEMP 97.6
== END 2021-12-03 17:16 ==
LOC: EUO 13:28
DX: M81.0 Age-related osteoporosis without current pathological fracture (principal)
CPT/HCPCS: J0897

== ENCOUNTER 2022-02-08 10:39 | Emergency (ER) | payer MEDICARE, BC ==
[~2022-02-08] VITALS: Ht 157.5 cm; Wt 54.5 kg
[2022-02-08 10:46] VITALS: TEMP 97.5
[2022-02-08 12:00] VITALS: BP 138/62; PULSE 80
== END 2022-02-08 12:02 | disposition home or self-care (01) ==
LOC: COL.ER 10:39
DX: K94.23 Gastrostomy malfunction (principal)

== ENCOUNTER 2022-04-07 06:31 | Emergency (ER) | payer MEDICARE, BC ==
[~2022-04-07] VITALS: Ht 157.5 cm; Wt 53.2 kg
[2022-04-07 06:38] VITALS: TEMP 97.6
[2022-04-07 08:36] VITALS: BP 122/61; PULSE 65
== END 2022-04-07 08:36 | disposition home or self-care (01) ==
LOC: COL.ER 06:31
DX: K59.00 Constipation, unspecified (principal)

== ENCOUNTER 2022-06-12 14:01 | Outpatient (CLI) | payer MEDICARE, BC ==
[~2022-06-12] VITALS: Ht 157.5 cm; Wt 52.1 kg
[~2022-06-12 14:01] MED LIST changes: +PULMICORT0.25 MG/2
[2022-06-12 14:45] VITALS: BP 151/70; PULSE 81; TEMP 97.5
== END 2022-06-12 15:16 | disposition home or self-care (01) ==
LOC: EUO 14:01
DX: M81.0 Age-related osteoporosis without current pathological fracture (principal)
CPT/HCPCS: J0897

== ENCOUNTER 2023-05-25 20:56 | Emergency (ER) | payer MEDICARE, BC ==
[~2023-05-25] VITALS: Ht 157.5 cm; Wt 53.6 kg
[~2023-05-25 20:56] MED LIST changes: +ADVIL200 MG PO; +CELEXA10 MG PO; +CLEOCIN HCL300 MG PO; +DIFLUCAN150 MG PO; -FENTANYL 50MCG TD; +FENTANYL 75MCG TD; -LEVOXYL0.075 MG PO; +SYNTHROID0.075 MG/T PO
[2023-05-25 21:08] VITALS: TEMP 98.2
[2023-05-25 22:02] VITALS: BP 128/79; PULSE 65
== END 2023-05-25 22:08 | disposition home or self-care (01) ==
LOC: COL.ER 20:56
DX: K94.23 Gastrostomy malfunction (principal); Z87.891 Personal history of nicotine dependence

== ENCOUNTER 2023-10-05 09:00 | Outpatient (RCR) | payer MEDICARE, BC ==
[2023-09-14 10:27] LABS: HEMOGLOBIN 12.2 g/dl (12.5-16.0); MEAN CELL VOLUME 94 fl (80.0-100.0); MEAN CORPUSCULAR HEMOGLOBIN 30 pg (27-31); MEAN CORPUSCULAR HGB CONC 32 g/dl (33.0-37.0); MEAN PLATELET VOLUME 12.2 fl (7.4-10.4); PLATELET COUNT 175 K/mm3 (130-400); RED BLOOD COUNT 4.04 M/mm3 (4.10-5.30); REDCELL DISTRIBUTION WIDTH-CV 15.8 % (11.5-14.5)
[2023-09-14 10:51] LABS: ALBUMIN 3.1 gm/dL (3.4-4.8); BILIRUBIN,TOTAL 0.5 mg/dL (0.2-1.2); C-REACTIVE PROTEIN 1.08 mg/dL (0.00-0.50); CALCIUM 9.7 mg/dL (8.4-10.2); CREATININE, serum 0.76 mg/dL (0.57-1.11); POTASSIUM 4.8 mmol/L (3.5-4.5); TOTAL PROTEIN 7.1 gm/dL (6.2-8.1)
[2023-09-21 14:55] VITALS: BP 126/60; PULSE 65; TEMP 97.9
[2023-09-21 14:56] LABS: HEMATOCRIT 40.4 % (37.0-47.0); HEMOGLOBIN 13.1 g/dl (12.5-16.0); MEAN CELL VOLUME 93 fl (80.0-100.0); MEAN CORPUSCULAR HEMOGLOBIN 30 pg (27-31); MEAN CORPUSCULAR HGB CONC 32 g/dl (33.0-37.0); PLATELET COUNT 193 K/mm3 (130-400); RED BLOOD COUNT 4.36 M/mm3 (4.10-5.30); REDCELL DISTRIBUTION WIDTH-CV 15.3 % (11.5-14.5)
[2023-09-21 15:11] LABS: ALBUMIN 3.1 gm/dL (3.4-4.8); BILIRUBIN,TOTAL 0.4 mg/dL (0.2-1.2); C-REACTIVE PROTEIN 0.9 mg/dL (0.00-0.50); CALCIUM 9.8 mg/dL (8.4-10.2); CREATININE, serum 0.83 mg/dL (0.57-1.11); TOTAL PROTEIN 7.4 gm/dL (6.2-8.1)
[2023-09-21 15:30] LABS: POTASSIUM 6.6 mmol/L (3.5-4.5)
[2023-09-28 09:26] LABS: HEMOGLOBIN 11.5 g/dl (12.5-16.0); MEAN CELL VOLUME 94 fl (80.0-100.0); MEAN CORPUSCULAR HEMOGLOBIN 30 pg (27-31); MEAN CORPUSCULAR HGB CONC 32 g/dl (33.0-37.0); MEAN PLATELET VOLUME 12.1 fl (7.4-10.4); PLATELET COUNT 175 K/mm3 (130-400); REDCELL DISTRIBUTION WIDTH-CV 16.1 % (11.5-14.5)
[2023-09-28 09:27] LABS: HEMATOCRIT 35.7 % (37.0-47.0)
[2023-09-28 09:30] VITALS: BP 111/60; PULSE 71; TEMP 98.2
[2023-09-28 09:42] LABS: ALBUMIN 2.8 gm/dL (3.4-4.8); BILIRUBIN,TOTAL 0.5 mg/dL (0.2-1.2); C-REACTIVE PROTEIN 1.49 mg/dL (0.00-0.50); CALCIUM 9.9 mg/dL (8.4-10.2); CREATININE, serum 0.79 mg/dL (0.57-1.11); POTASSIUM 5.3 mmol/L (3.5-4.5); TOTAL PROTEIN 6.8 gm/dL (6.2-8.1)
[~2023-10-05] VITALS: Ht 157.5 cm; Wt 53.8 kg
[~2023-10-05 09:00] MED LIST changes: +ARICEPT10 MG PO; +CELEXA 20MG20 MG/TAB PO; +DESYREL 50MG50 MG PO; +IBU400 MG PO; +NS Flush 10 ML SYRINGE (Power PICC Line - 10 mL PRN) ICA; +NS Flush 10 ML SYRINGE (Power PICC Line - 10 mL Q12hr) ICA SCH; +TYLENOL ELIX32 MG/M2 PO
[2023-10-05 09:37] VITALS: BP 96/66; PULSE 61; TEMP 97.9
[2023-10-05 09:40] LABS: HEMOGLOBIN 11.5 g/dl (12.5-16.0); MEAN CELL VOLUME 97 fl (80.0-100.0); MEAN CORPUSCULAR HEMOGLOBIN 30 pg (27-31); MEAN CORPUSCULAR HGB CONC 31 g/dl (33.0-37.0); MEAN PLATELET VOLUME 12.1 fl (7.4-10.4); PLATELET COUNT 181 K/mm3 (130-400); RED BLOOD COUNT 3.82 M/mm3 (4.10-5.30); REDCELL DISTRIBUTION WIDTH-CV 16.6 % (11.5-14.5)
[2023-10-05 10:03] LABS: ALBUMIN 2.7 gm/dL (3.4-4.8); BILIRUBIN,TOTAL 0.5 mg/dL (0.2-1.2); C-REACTIVE PROTEIN 1.49 mg/dL (0.00-0.50); CALCIUM 9.3 mg/dL (8.4-10.2); CREATININE, serum 0.79 mg/dL (0.57-1.11); POTASSIUM 4.6 mmol/L (3.5-4.5); TOTAL PROTEIN 6.5 gm/dL (6.2-8.1)
--- NOTE | 2023-10-05 10:14 | NUR ---
Pt discharged via wc with juju.
== END 2023-10-05 10:14 | disposition home or self-care (01) ==
LOC: EUO 09:00
PROVIDERS: Family Medicine
DX: M27.2 Inflammatory conditions of jaws (principal)

== ENCOUNTER → 2023-11-02 | Outpatient (CLI) | payer MEDICARE, BC ==
[~2023-11-02] MED LIST changes: -NS Flush 10 ML SYRINGE (Power PICC Line - 10 mL PRN) ICA; -NS Flush 10 ML SYRINGE (Power PICC Line - 10 mL Q12hr) ICA SCH
== END ==
LOC: COL.LAB 17:50
DX: M27.2 Inflammatory conditions of jaws (principal)

== ENCOUNTER 2023-12-14 18:46 | Emergency (ER) | payer MEDICARE, BC ==
[~2023-12-14] VITALS: Ht 157.5 cm; Wt 55.5 kg
[2023-12-14 18:54] VITALS: BP 131/62; TEMP 97.8
[2023-12-14 20:26] VITALS: PULSE 73
== END 2023-12-14 20:26 | disposition home or self-care (01) ==
LOC: COL.ER 18:46
DX: K94.23 Gastrostomy malfunction (principal)

== ENCOUNTER 2023-12-19 12:40 | Emergency (ER) | payer MEDICARE, BC ==
[~2023-12-19] VITALS: Ht 160 cm; Wt 54.5 kg
[2023-12-19 12:52] VITALS: TEMP 98.1
[2023-12-19 15:00] VITALS: BP 134/66; PULSE 67
== END 2023-12-19 15:00 | disposition home or self-care (01) ==
LOC: COL.ER 12:40
DX: K94.23 Gastrostomy malfunction (principal)

== ENCOUNTER → 2024-01-21 | Outpatient (CLI) | payer MEDICARE, BC | LOC: COL.LAB 20:15 | DX: M27.2 Inflammatory conditions of jaws (principal) ==

== ENCOUNTER 2024-04-06 18:36 | Emergency (ER) | payer MEDICARE, BC ==
[~2024-04-06] VITALS: Ht 157.5 cm; Wt 52.0 kg
[2024-04-06 18:37] VITALS: TEMP 99.8
[2024-04-06] MEDS ORDERED: Acetaminophen 500 MG TAB PO ONE (19:00)
[2024-04-06 19:01] LABS: BASO % 0.2 % (0.0-2.0); EOS # 0.1 K/mm3 (0.0-0.7); EOS % 1.4 % (0.0-4.0); GRAN # 6.6 K/mm3 (1.4-6.5); GRAN % 80.8 % (42.2-75.2); HEMOGLOBIN 10.6 g/dl (12.5-16.0); LYMPH # 0.5 K/mm3 (1.2-3.4); LYMPH % 6.3 % (20.0-51.0); MEAN CELL VOLUME 96 fl (80.0-100.0); MEAN CORPUSCULAR HEMOGLOBIN 30 pg (27-31); MEAN CORPUSCULAR HGB CONC 32 g/dl (33.0-37.0); MEAN PLATELET VOLUME 12.4 fl (7.4-10.4); MONO # 0.9 K/mm3 (0.1-0.6); MONO % 11.1 % (1.7-9.3); PLATELET COUNT 163 K/mm3 (130-400); RED BLOOD COUNT 3.51 M/mm3 (4.10-5.30); REDCELL DISTRIBUTION WIDTH-CV 15.7 % (11.5-14.5)
[2024-04-06 19:03] LABS: HEMATOCRIT 33.6 % (37.0-47.0)
[2024-04-06 19:04] LABS: INR 1.1 (0.8-3.0); PROTHROMBIN TIME 11.9 SECONDS (9.7-12.8)
[2024-04-06 19:18] LABS: ALBUMIN 3.4 g/dL (3.4-4.8); BILIRUBIN,TOTAL 0.5 mg/dL (0.2-1.2); CALCIUM 8.7 mg/dL (8.4-10.2); CREATININE, serum 0.84 mg/dL (0.57-1.11); POTASSIUM 4.7 mEq/L (3.5-4.5); TOTAL PROTEIN 7.2 g/dl (6.2-8.1)
[2024-04-06] MEDS ORDERED: PROTONIX 40MG T40 MG PO (19:28)
[2024-04-06] MEDS ORDERED: ARICEPT ODT5 MG PEG (19:28)
[2024-04-06] MEDS ORDERED: PEPCID 20MG TAB20 MG PO (19:31)
[2024-04-06] MEDS ORDERED: DIFLUCAN150 MG PEG (19:32)
[2024-04-06] MEDS ORDERED: CLEOCIN HCL300 MG PEG (19:34)
[2024-04-06] MEDS ORDERED: MUCUS RELIEF200 MG PEG (19:34)
[2024-04-06] MEDS ORDERED: PAXLOVID CO-PA1 EACH PO (19:40)
[2024-04-06 20:03] VITALS: BP 134/54; PULSE 73
== END 2024-04-06 20:05 | disposition home or self-care (01) ==
LOC: COL.ER 18:36
PROVIDERS: Family Medicine
DX: U07.1 COVID-19 (principal); R06.02 Shortness of breath; Z87.891 Personal history of nicotine dependence

== ENCOUNTER → 2024-05-08 | Outpatient (RCR) | payer MEDICARE, BC ==
[2024-05-03 08:16] VITALS: BP 123/55; PULSE 70; TEMP 97.8
[2024-05-03 10:36] LABS: HEMOGLOBIN 10.5 g/dl (12.5-16.0); MEAN CELL VOLUME 95 fl (80.0-100.0); MEAN CORPUSCULAR HEMOGLOBIN 30 pg (27-31); MEAN CORPUSCULAR HGB CONC 32 g/dl (33.0-37.0); MEAN PLATELET VOLUME 12.5 fl (7.4-10.4); PLATELET COUNT 161 K/mm3 (130-400); RED BLOOD COUNT 3.46 M/mm3 (4.10-5.30); REDCELL DISTRIBUTION WIDTH-CV 15.1 % (11.5-14.5)
[2024-05-03 10:37] LABS: HEMATOCRIT 32.7 % (37.0-47.0)
[2024-05-03 10:59] LABS: ALBUMIN 3.2 g/dL (3.4-4.8); BILIRUBIN,TOTAL 0.4 mg/dL (0.2-1.2); C-REACTIVE PROTEIN 2.65 mg/dL (0.00-0.50); CALCIUM 9.1 mg/dL (8.4-10.2); CREATININE, serum 0.8 mg/dL (0.57-1.11); POTASSIUM 4.8 mEq/L (3.5-4.5); TOTAL PROTEIN 6.7 g/dl (6.2-8.1)
--- NOTE | 2024-05-03 13:10 | NUR ---
PT ARRIVED TO 15 VIA WHEELCHAIR FOR PICC LINE PLACEMENT AT 0800. PT WAS ACCOMPANIED BY DAUGHTER. UPON ATTEMPTING TO PLACE PICC LINE, THE [facility] RN LIZ FOUND THAT THE PT'S VASCULATURE WAS NOT SUSTAINABLE FOR A PICC LINE AT THIS TIME. THIS INFORMATION WAS CALLED TO THE [facility] INFECTIOUS DISEASE OFFICE AT 0930. THE INFECTIOUS DISEASE NURSE DISCUSSED ALTERNATIVE OPTIONS WITH DR. ACUÑA AND DECIDED THAT THE PATIENT COULD BE SENT HOME WITH A PERIPHERAL IV IN PLACE OF A PICC LINE FOR AT-HOME INFUSIONS. AN ORDER WAS OBTAINED TO RELEASE PT HOME WITH PERIPHERAL IV. INFECTIOUS DISEASE OFFICE ALSO SENT ORDERS TO ADMINISTER FIRST DOSE OF MAXIPIME IN HOSPITAL FOR MONITORING, THIS ORDER WAS CO-SIGNED BY DR. MCLAUGHLIN. FIRST DOSE OF ANTIBIOTIC WAS ADMINISTERED PER ORDERS AND PT WAS OBSERVED FOR 20 MINUTES FOLLOWING ADMINISTRATION. VS REMAINED WIHTIN NORMAL LIMITS AND PT DID NOT VERBALIZE ANY SIGNS OR SYMPTOMS OF ADVDERSE REACTION. EXTENSIVE EDUCATION WAS GIVEN TO PT'S DAUGHTER AND PT IN REGARDS TO CARING FOR THE IV ONCE HOME. AN INFORMATION PACKET WAS SENT HOME WITH THE PT AND BOTH THE PT AND PT'S DAUGHTER VERBALIZED UNSERSTANDING OF DISCHARGE INSTRUCTIONS. IV WAS PADDED WITH GAUZE, WRAPPED WITH AN KARINA-WRAP, AND CLAMPED UPON DISCHARGE. PT ASSISTED BACK TO THE MAIN LOBBY VIA WHEELCHAIR AND WAS ACCOMPANIED BY HER DAUGHTER. PT AND DAUGHTER REMAINED FREE FROM ACUTE CONCERNS AND COMPLAINTS UPON DISCHARGE. PT WILL RETURN IN 7 DAYS TO HAVE A NEW IV PLACED AND LABS DRAWN.
[~2024-05-08] VITALS: Ht 157.5 cm; Wt 60.8 kg
[~2024-05-08] MED LIST changes: +ARICEPT ODT5 MG PEG; +CLEOCIN HCL300 MG PEG; +Cefepime 2 G in Water For Injection,Sterile 20 ML IV SCH; +DIFLUCAN150 MG PEG; +MUCUS RELIEF200 MG PEG; +MUCUS RELIEF200 MG PO; +PAXLOVID CO-PA1 EACH PO; +PEPCID 20MG TAB20 MG PO; +PROTONIX 40MG T40 MG PO
[2024-05-08 09:18] VITALS: BP 119/57; PULSE 71; TEMP 97.4
[2024-05-08 09:22] LABS: HEMOGLOBIN 11.4 g/dl (12.5-16.0); MEAN CELL VOLUME 95 fl (80.0-100.0); MEAN CORPUSCULAR HEMOGLOBIN 31 pg (27-31); MEAN CORPUSCULAR HGB CONC 33 g/dl (33.0-37.0); MEAN PLATELET VOLUME 11.9 fl (7.4-10.4); PLATELET COUNT 173 K/mm3 (130-400); RED BLOOD COUNT 3.68 M/mm3 (4.10-5.30); REDCELL DISTRIBUTION WIDTH-CV 14.9 % (11.5-14.5)
[2024-05-08 09:24] LABS: HEMATOCRIT 34.9 % (37.0-47.0)
--- NOTE | 2024-05-08 09:25 | NUR ---
New IV was placed by CODIE Cortez. Labs were also drawn for weekly labs. Pt remains on scheduled for next 05/17/24, and will call if needs appt for IV change sooner.
[2024-05-08 09:43] LABS: ALBUMIN 3.2 g/dL (3.4-4.8); BILIRUBIN,TOTAL 0.5 mg/dL (0.2-1.2); C-REACTIVE PROTEIN 2.62 mg/dL (0.00-0.50); CALCIUM 9.3 mg/dL (8.4-10.2); CREATININE, serum 0.75 mg/dL (0.57-1.11); POTASSIUM 5.1 mEq/L (3.5-4.5); TOTAL PROTEIN 7.1 g/dl (6.2-8.1)
== END | disposition home or self-care (01) ==
LOC: EUO
PROVIDERS: Family Medicine
DX: M27.2 Inflammatory conditions of jaws (principal); C06.9 Malignant neoplasm of mouth, unspecified; Y84.2 Radiological procedure and radiotherapy as the cause of abnormal reaction of the patient, or of later complication, without mention of misadventure at the time of the procedure
CPT/HCPCS: C1751; C1892; J0692